=== PATIENT | male | born 1995 | race Caucasian/White ===

== ENCOUNTER 2019-02-16 16:15 | Inpatient (IN) | payer MEDICAID, OTHER ==
[~2019-02-16] VITALS: Ht 182 cm; Wt 120.7 kg
[~2019-02-16 16:15] MED LIST: AC500T PO; AMOX500C2 PO; ATOM100C PO; CETI10TA57 PO; DM/P1CAP51 PO; DM/P295L13 PO; LISD60CA PO; OMG1KC PO
[2019-02-16] MEDS ORDERED: LACTATED RINGERS 1,000 ML IV ONE ×2 (16:22)
[2019-02-16] MEDS ORDERED: ACETAMINOPHEN 500 MG TAB (TYLENOL) ONE (16:26)
[2019-02-16] MEDS ORDERED: NS IV 1000 ML 1,000 ML ONE (16:26)
[2019-02-16] MEDS ORDERED: ACETAMINOPHEN 500 MG TAB (TYLENOL) PO PRN (16:30)
[2019-02-16 16:35] LABS: BASOPHILS % (AUTO) 0 % (0-10); EOSINOPHILS % (AUTO) 0 % (0-10); HEMATOCRIT 41 % (40-54); HEMOGLOBIN 13.7 G/DL (13.3-17.7); LYMPHOCYTES # (AUTO) 0.8 X 10^3 (1.0-4.0); LYMPHOCYTES % (AUTO) 11 % (12-44); MEAN CORPUSCULAR HEMOGLOBIN 28 PG (25-34); MEAN CORPUSCULAR HGB CONC 34 G/DL (32-36); MEAN CORPUSCULAR VOLUME 83 FL (80-99); MONOCYTES # (AUTO) 0.8 X 10^3 (0.0-1.0); MONOCYTES % (AUTO) 11 % (0-12); NEUTROPHILS # (AUTO) 5.7 X 10^3 (1.8-7.8); NEUTROPHILS % (AUTO) 78 % (42-75); PLATELET COUNT 126 10^3/uL (130-400); RED CELL DISTRIBUTION WIDTH 12.3 % (10.0-14.5); WHITE BLOOD COUNT 7.3 10^3/uL (4.3-11.0)
--- NOTE | 2019-02-16 16:40 | ED General ---
General Chief Complaint: Fever-Adult/Adol Stated Complaint: FEVER/WEAKNESS Nursing Triage Note: ARRIVED VIA EMS FROM [facility]. PRESENTED THERE WITH FLU LIKE SX SINCE WEDNESDAY FEVER 105 THERE ET IBUPROFEN 600MG GIVEN. PT COMPLAINS OF HEADACHE, NECK PAIN, SORE THROAT. Nursing Sepsis Screen: Possible Severe Sepsis Risk Source of Information: Patient Exam Limitations: No Limitations History of Present Illness Date Seen by Provider: Feb 16, 2019 Time Seen by Provider: 16:20 Initial Comments Here with report of fever of 105 and flulike symptoms that have been going on for the last 4 days. Everything is worse today. Does complain of headache and some neck pain. Does complain of sore throat. Denies nausea, vomiting or diarrhea. Overall states that he feels terrible. Was seen at outside urgent care clinic and noted to be strep and flu negative. Otherwise no significant history. Has had some sick contacts but nobody had the illness as bad as he has it. Denies recent tick contacts but is unsure. Timing/Duration: 3-4 Days, Getting Worse Severity: Moderate, Severe Modifying Factors: improves with Rest Associated Systoms: No Chest Pain, No Cough; Fever/Chills, Headaches; No Nausea/Vomiting, No Shortness of Air; Weakness Allergies and Home Medications Allergies Coded Allergies: lentils (Verified Allergy, Unknown, 02/16/19) nut - unspecified (Verified Allergy, Unknown, 02/16/19) Home Medications Atomoxetine HCl 60 Mg Capsule, 60 MG PO DAILY, (Reported) Azithromycin 250 Mg Tablet, 250 MG PO DAILY Prescribed by: TROY BLAKE on 02/19/19 1242 Cephalexin 500 Mg Capsule, 500 MG PO BID Prescribed by: TROY BLAKE on 02/19/19 1242 Guaifenesin/Dextromethorphan 5 Ml Syrup, 10 ML PO TID PRN for COUGH Prescribed by: TROY BLAKE on 02/19/19 1242 Lisdexamfetamine Dimesylate 50 Mg Capsule, 50 MG PO DAILY, (Reported) Patient Home Medication List Home Medication List Reviewed: Yes Review of Systems Review of Systems Constitutional: see HPI, fever EENTM: nose congestion, throat pain; No nose pain, No throat swelling Respiratory: No cough, No short of breath Cardiovascular: No chest pain, No edema Gastrointestinal: No abdominal pain, No nausea, No vomiting Genitourinary: no symptoms reported Musculoskeletal: muscle pain, neck pain Skin: no symptoms reported Psychiatric/Neurological: No Symptoms Reported All Other Systems Reviewed Negative Unless Noted: Yes Past Pynyhbo-Lusuhi-Zadmfz Hx Past Med/Social Hx: Reviewed Nursing Past Med/Soc Hx Patient Social History Alcohol Use: Occasionally Uses Recreational Drug Use: No Smoking Status: Never a Smoker Recent Foreign Travel: No Contact w/Someone Who Travel: No Recent Infectious Disease Expo: No Recent Hopitalizations: No Past Medical History Surgeries: Yes Adenoidectomy Respiratory: No Cardiac: No Neurological: No Genitourinary: No Gastrointestinal: No Musculoskeletal: No Endocrine: No HEENT: No Cancer: No Psychosocial: Yes ADD/ADHD Integumentary: No Family Medical History Reviewed Nursing Family Hx No Pertinent Family Hx Physical Exam-Suspected Sepsis Physical Exam Vital Signs Vital Signs - First Documented 02/16/19 02/16/19 16:17 23:54 Temp 40.6 Pulse 110 Resp 18 B/P (MAP) 112/54 (73) Pulse Ox 96 O2 Delivery Room Air O2 Flow Rate 2.00 Capillary Refill : Less Than 3 Seconds Blood Pressure Mean: 73 Height, Weight, BMI Height: '" Weight: 192lbs. oz. 87.728879sq; 30.00 BMI Method:Stated General Appearance: No Apparent Distress, WD/WN HEENT: PERRL/EOMI, Pharynx Normal Neck: Full Range of Motion, Normal Inspection, Non Tender, Supple Respiratory: Lungs Clear, Normal Breath Sounds Cardiovascular: No Murmur, Tachycardia Gastrointestinal: Non Tender, Soft Back: Normal Inspection, No CVA Tenderness, No Vertebral Tenderness Extremity: Normal Range of Motion, Non Tender Neurologic/Psychiatric: Alert, Oriented x3 Skin: normal color, warm/dry Focused Exam Lactate Level Lactic Acid Level Procedures/Interventions Lumen: triple Central Line Procedure: betadine prep, sterile drapes applied, sterile dressing applied Position: internal jugular (R) Anesthesia: Lidocaine Volume Anesthetic (ccs): 4 Complications: none Post Position: sutured, good blood return, position confirmed w/ CXR Central line placed by Guido Saucedo MS4, via ultrasound guidance under my direct supervision. I was present for and assisted with the procedure for the entire procedure. 1 stick without complications. Sutured in place. Good blood return and flush. Covered with sterile dressing. Verified by chest x-ray. Discussed Risk,Benefits: Yes Patient Consents: Yes Position: Lying, L3-4, Right Sterile Technique: Yes Opening Pressure: 40 Fluid Color: clear Size of Disposal Tray Used: Adult anesthetized with 2% lidocaine with epinephrine. Tolerated procedure well Progress/Results/Core Measures Suspected Sepsis Recent Fever Within 48 Hours: Yes Infection Criteria Present: Suspected New Infection New/Unexplained Altered Menta: No Sepsis Screen: Possible Severe Sepsis Risk SIRS Temperature: Pulse: 110 Respiratory Rate: 18 Laboratory Tests 02/19/19 05:02: White Blood Count 4.1L Blood Pressure 112 /54 Mean: 73 Laboratory Tests 02/19/19 05:02: Creatinine 0.71, Platelet Count 132 Results/Orders Lab Results Micro Results My Orders Medications Given in ED Vital Signs/I&O Capillary Refill : Less Than 3 Seconds Blood Pressure Mean: 73 Progress Note : Progress Note Seen and evaluated on arrival by EMS. IV, labs, UA, blood cultures, lactic acid and tick panel ordered. Chest x-ray ordered. We will repeat influenza screen. NS1 liter bolus followed by LR [address] head ordered in anticipation of possible lumbar puncture. Monitor patient. 1723: CT negative. We will proceed with lumbar puncture due to persistent pain and hypotension. Consent signed for lumbar puncture and central line. Mother signed. I did update parents on concerns. Due to progression of symptoms, we will go ahead and initiate Decadron 10 mg IV and Rocephin 2 g IV. Fentanyl IV for pain ordered. 1730: Fentanyl greatly reduced pain and he is much more comfortable. Still concerns for meningitis. Patient prepared for lumbar puncture. 1800: Lumbar puncture complete. We will move to Central line placement as patient has been hypotensive despite high volume fluid resuscitation with blood pressures in the 80s. 1845: Central line placement complete. Tolerated well. We will move towards admission to the ICU. I are discussed the case with Dr. To and he agreed with the initiation of antibiotics and Decadron as done earlier. 0: I discussed the case with Dr. Lynch, on-call for [facility] and she accepts patient for admission, inpatient status to the ICU. We did discuss cell count findings. Patient did have high opening pressure. There is concern for viral meningitis and for HSV encephalitis. We will initiate acyclovir weight-based dosing. Acyclovir 800 mg IV ordered. 1904: I have updated Dr. To on current findings. He agrees with acyclovir. We will move towards admission. 1932: Patient has findings of septic shock. High-volume fluid resuscitation complete and is improved with respect to hypotension. No need for pressors at this point. I attest a focused exam at this time. Patient is maintaining blood pressure with greater than 100 systolic. He is currently on the 250 mL an hour LR fluid dosing. We will consider vasopressors if needed. All findings and concerns were discussed with the patient and family and he was updated on the current plan and agrees. UA obtained via Fung catheter. Patient did have 600 mL out but could not tolerate the catheter so this was removed. Admit to the ICU, inpatient status. Diagnostic Imaging Diagonstic Imaging: CT Plain Films/CT/US/NM/MRI: head Comments [facility] [place] NAME: JEFFRY FREED MED REC#: [id number] PT STATUS: REG ER : 1995 PHYSICIAN: DAVID MATA MD ADMIT DATE: 02/16/19/ER Draft Date of Exam:02/16/19 CT HEAD WO PROCEDURE: CT head without contrast. TECHNIQUE: Multiple contiguous axial images were obtained through the brain without the use of intravenous contrast. Auto Exposure Controls were utilized during the CT exam to meet ALARA standards for radiation dose reduction. INDICATION: Febrile. Headache. Neck pain. FINDINGS: The ventricles and cortical gyral pattern are normal. There is no intracranial hemorrhage. No mass effect. No extra-axial fluid collection. Basal cisterns are clear. CP angles are normal. Pituitary is not enlarged. Mastoid air cells are well aerated and clear. Paranasal sinuses are clear where visualized. There are no calvarial lesions. IMPRESSION: Negative CT head without contrast. Dictated on workstation # [id number] Dict: 02/16/19 1710 Trans: 02/16/19 1714 [id number] Interpreted by: ROSEMARIE AMAYA MD Electronically signed by: Diagonstic Imaging: Xray Plain Films/CT/US/NM/MRI: chest Comments NAME: JEFFRY FREED MED REC#: [id number] PT STATUS: REG ER : 1995 PHYSICIAN: DAVID MATA MD ADMIT DATE: 02/16/19/ER Signed Date of Exam: 02/16/19 CHEST 1 VIEW, AP/PA ONLY INDICATION: Headache and fever. COMPARISON: None. EXAMINATION: Single view of the chest was obtained. FINDINGS: Opacity in the left base. The right lung is clear. The heart is slightly prominent but likely due to technique. There is no pneumothorax. No pulmonary edema. There is no obvious effusion. Osseous structures are normal. IMPRESSION: Atelectasis and/or infiltrate in the left lung base. Followup recommended. Dictated by: Dictated on workstation # [id number] Dict: 02/16/191726 Trans: 02/16/191820 Interpreted by: JUNG HAYES Electronically signed by: JUNG HAYES 02/16/191820 Diagonstic Imaging: Xray Plain Films/CT/US/NM/MRI: chest Comments NAME: JEFFRY FREED [facility] REC#: [id number] PT STATUS: REG ER : 1995 PHYSICIAN: DONNIE PARKER APRN ADMIT DATE: 02/16/19/ER Signed Date of Exam: 02/16/19 CHEST 1 VIEW, AP/PA ONLY INDICATION: Central line placement COMPARISON: 02/16/19 at 5:19 PM FINDINGS: Single view of the chest demonstrates right IJ catheter with the tip in the SVC. There is no pneumothorax. IMPRESSION: Well-positioned right central venous catheter Dictated by: Dictated on workstation # [id number] Dict: 02/16/19 190 Trans: 02/16/191919 Interpreted by: JUNG HAYES Electronically signed by: JUNG HAYES 02/16/191919 Departure Communication (Admissions) Time/Spoke to Admitting Phy: 19:00 Time/Spoke to Consulting Phy: 17:35 Impression Primary Impression: Meningitis Additional Impression: Left lower lobe pneumonia Qualified Codes: J18.1 - Lobar pneumonia, unspecified organism Disposition: ADMITTED INPATIENT Condition: Stable Admissions Decision to Admit Reason: Admit from ER (General) Decision to Admit/Date: Feb 16, 2019 Time/Decision to Admit Time: 17:35 Departure-Patient Inst. Referrals: [facility] (PCP/Family) Primary Care Physician Scripts Guaifenesin/Dextromethorphan (Guaifenesin Dm Syrup) 5 Ml Syrup 10 ML PO TID PRN for COUGH, #60 ML Prov: TROY BLAKE MD 02/19/19 Azithromycin (Azithromycin) 250 Mg Tablet 250 MG PO DAILY, #1 TAB Prov: TROY BLAKE MD 02/19/19 Cephalexin (Keflex) 500 Mg Capsule 500 MG PO BID, #6 CAP Prov: TROY BLAKE MD 02/19/19 DAVID MATA MD Feb 16, 2019 16:40
[2019-02-16] MEDS ORDERED: NS IV 1000 ML 1,000 ML IV SCH (16:45)
[2019-02-16 16:53] LABS: ALANINE AMINOTRANSFERASE 34 U/L (0-55); ALBUMIN 4.4 GM/DL (3.2-4.5); ALKALINE PHOSPHATASE 54 U/L (40-136); BILIRUBIN,TOTAL 0.6 MG/DL (0.1-1.0); BUN/CREATININE RATIO 7; CALCIUM 9.3 MG/DL (8.5-10.1); CARBON DIOXIDE 27 MMOL/L (21-32); CHLORIDE 99 MMOL/L (98-107); CREATININE SERUM 1.13 MG/DL (0.60-1.30); GFR ESTIMATED > 60; GLUCOSE 98 MG/DL (70-105); POTASSIUM 3.4 MMOL/L (3.6-5.0); SODIUM 134 MMOL/L (135-145); TOTAL PROTEIN 7.4 GM/DL (6.4-8.2)
[2019-02-16 16:58] LABS: INR 1.2 (0.8-1.4); PROTHROMBIN TIME PATIENT 15.5 SEC (12.2-14.7)
--- NOTE | 2019-02-16 17:15 | Diagnostic Imaging Report ---
PROCEDURE: CT head without contrast. TECHNIQUE: Multiple contiguous axial images were obtained through the brain without the use of intravenous contrast. Auto Exposure Controls were utilized during the CT exam to meet ALARA standards for radiation dose reduction. INDICATION: Febrile. Headache. Neck pain. FINDINGS: The ventricles and cortical gyral pattern are normal. There is no intracranial hemorrhage. No mass effect. No extra-axial fluid collection. Basal cisterns are clear. CP angles are normal. Pituitary is not enlarged. Mastoid air cells are well aerated and clear. Paranasal sinuses are clear where visualized. There are no calvarial lesions. IMPRESSION: Negative CT head without contrast. Dictated by: Dictated on workstation # [id number]
[2019-02-16] MEDS ORDERED: fentaNYL INJECTION 100 MCG/2 ML AMP IVP STA (17:17)
[2019-02-16] MEDS ORDERED: cefTRIAXone FOR IV USE 2,000 MG in WATER (STERILE) FOR INJECTION 20 ML IV ONE (17:30)
[2019-02-16] MEDS ORDERED: DEXAMETHASONE 10 MG/ML (DECADRON) 1 ML VIAL IV ONE (17:30)
--- NOTE | 2019-02-16 17:34 | Diagnostic Imaging Report ---
INDICATION: Headache and fever. COMPARISON: None. EXAMINATION: Single view of the chest was obtained. FINDINGS: Opacity in the left base. The right lung is clear. The heart is slightly prominent but likely due to technique. There is no pneumothorax. No pulmonary edema. There is no obvious effusion. Osseous structures are normal. IMPRESSION: Atelectasis and/or infiltrate in the left lung base. Followup recommended. Dictated by: Dictated on workstation # [id number]
[2019-02-16] MEDS ORDERED: LIDOCAINE/EPI 2% 1:100,00 (XYLOCAINE) 20 ML VIAL ONE (17:38)
[2019-02-16] MEDS ORDERED: LIDOCAINE/EPI 2% 1:100,00 (XYLOCAINE) 20 ML VIAL INJ ONE (17:45)
[2019-02-16] MEDS ORDERED: LACTATED RINGERS 1,000 ML IV SCH (18:30)
[2019-02-16 18:42] LABS: CSF GLUCOSE 61 MG/DL (50-80); CSF TOTAL PROTEIN 27 MG/DL (15-40)
[2019-02-16 18:52] LABS: APPEARANCE,CSF CLEAR; COLOR,CSF COLORLESS; RED BLOOD CELL,CSF 3 CELLS (0-0); WHITE BLOOD CELL,CSF 2 CELLS (0-5)
--- NOTE | 2019-02-16 19:07 | Diagnostic Imaging Report ---
INDICATION: Central line placement COMPARISON: 02/16/19 at 5:19 PM FINDINGS: Single view of the chest demonstrates right IJ catheter with the tip in the SVC. There is no pneumothorax. IMPRESSION: Well-positioned right central venous catheter Dictated by: Dictated on workstation # [id number]
[2019-02-16] MEDS ORDERED: ACYCLOVIR 800 MG/NS 250 ML IVPB IV NR ×2 (19:15)
[2019-02-16] MEDS ORDERED: ACYCLOVIR 500 MG/10 ML INJ (ZOVIRAX) VIAL IV SCH (19:15)
[2019-02-16 19:25] LABS: BILIRUBIN,URINE NEGATIVE (NEGATIVE); CLARITY,URINE CLEAR; COLOR,URINE YELLOW; GLUCOSE, URINE (UA) NEGATIVE (NEGATIVE); KETONES,URINE 2+ (NEGATIVE); LEUKOCYTE ESTERASE ,URINE NEGATIVE (NEGATIVE); NITRITE,URINE NEGATIVE (NEGATIVE); PH,URINE 6 (5-9); PROTEIN,URINE 1+ (NEGATIVE); UROBILINOGEN,URINE NORMAL (NORMAL)
[2019-02-16 19:33] LABS: CSF TUBE NUMBER 4
[2019-02-16 19:39] LABS: AMORPHOUS SEDIMENT,UR RARE AMOR URATES /LPF; BACTERIA,URINE TRACE /HPF; RBC,URINE RARE /HPF; SQUAMOUS EPITHELIAL CELL,UR RARE /HPF
--- NOTE | 2019-02-16 19:45 | NUR ---
Patient did not tolerate liz catheter and requested to have it removed. Per Dr. Cooper Catheter can be removed. Liz catheter removed without difficulty. Patient tolerates procedure well.
--- NOTE | 2019-02-16 19:48 | NUR ---
Report called to Kaela in ICU.
[2019-02-16 20:09] VITALS: BP 110/49
[2019-02-16] MEDS ORDERED: fentaNYL INJECTION 100 MCG/2 ML AMP IV PRN (20:30)
[2019-02-16] MEDS ORDERED: EPINEPHrine 1 MG INJECTION 2 MG in NS (IVPB) 250 ML IV SCH (20:30)
[2019-02-16] MEDS: VASOPRESSIN INJECTION 20 UNIT in NORMAL SALINE 100 ML IV SCH (20:39)
[2019-02-16] MEDS: NOREPINEPHRINE 4 MG in NS (IVPB) 250 ML IV SCH (20:39)
[2019-02-16] MEDS: AZITHROMYCIN 500 MG/NS 250 ML IVPB IV SCH ×2 (20:54)
[2019-02-16] MEDS: LACTATED RINGERS 1,000 ML IV SCH (20:54)
[2019-02-16 21:00] VITALS: BP 104/52
[2019-02-16 22:00] VITALS: BP 105/50
[2019-02-16 23:00] VITALS: BP 106/68
[2019-02-17] VITALS (24 sets, daily range): BP systolic 97–178; BP diastolic 49–122
[2019-02-17] MEDS: LACTATED RINGERS 1,000 ML IV SCH ×5 (02:10→22:23)
[2019-02-17] MEDS: ACYCLOVIR 800 MG/NS 250 ML IVPB IV SCH ×6 (03:08→20:13)
[2019-02-17 03:16] LABS: BASOPHILS % (AUTO) 0 % (0-10); EOSINOPHILS % (AUTO) 0 % (0-10); HEMATOCRIT 36 % (40-54); HEMOGLOBIN 12.2 G/DL (13.3-17.7); LYMPHOCYTES # (AUTO) 0.5 X 10^3 (1.0-4.0); LYMPHOCYTES % (AUTO) 9 % (12-44); MEAN CORPUSCULAR HEMOGLOBIN 28 PG (25-34); MEAN CORPUSCULAR HGB CONC 34 G/DL (32-36); MEAN CORPUSCULAR VOLUME 83 FL (80-99); MEAN PLATELET VOLUME 11.4 FL (7.4-10.4); MONOCYTES # (AUTO) 0.3 X 10^3 (0.0-1.0); MONOCYTES % (AUTO) 5 % (0-12); NEUTROPHILS # (AUTO) 5.5 X 10^3 (1.8-7.8); NEUTROPHILS % (AUTO) 87 % (42-75); PLATELET COUNT 113 10^3/uL (130-400); RED CELL DISTRIBUTION WIDTH 12.1 % (10.0-14.5); WHITE BLOOD COUNT 6.3 10^3/uL (4.3-11.0)
[2019-02-17 03:33] LABS: BUN/CREATININE RATIO 12; CALCIUM 8.3 MG/DL (8.5-10.1); CARBON DIOXIDE 22 MMOL/L (21-32); CHLORIDE 108 MMOL/L (98-107); CREATININE SERUM 0.77 MG/DL (0.60-1.30); GFR ESTIMATED > 60; GLUCOSE 133 MG/DL (70-105); MAGNESIUM 1.8 MG/DL (1.6-2.4); PHOSPHORUS 2.9 MG/DL (2.3-4.7); SODIUM 140 MMOL/L (135-145)
--- NOTE | 2019-02-17 03:35 | NUR ---
TURNED ROOM TEMP UP AND APPLIED WARM BLANKET. WILL REASSESS
[2019-02-17] MEDS: POTASSIUM CL 10MEQ/50ML IVPB 50 ML IV SCH (04:04)
[2019-02-17] MEDS: NOREPINEPHRINE 4 MG in NS (IVPB) 250 ML IV SCH ×3 (04:04→20:00)
[2019-02-17] MEDS: MAGNESIUM 1 GM/100 ML IVPB 100 ML IV SCH (04:04)
[2019-02-17] MEDS: KCL 20 MEQ TAB (K-DUR) PO SCH (04:04)
--- NOTE | 2019-02-17 04:27 | Pulmonary Consultation ---
RUSTY CARLOS,MED STUDENT 02/17/19 0427: History of Present Illness History of Present Illness Date of Consultation 02/17/19 04:12 Time Seen by Provider: 04:12 Date of Admission Reason for Visit: high fever and headache History of Present Illness Patient is a 23y/o male that present to the ER last night upon referral by urgent care for a high fever (40.6C) and headache. Patient states that he has been fluctuating between hot and cold, having headaches t that are constant but wax and wane in intensity, a sore throat with non-productive cough and myalgias. He as stated that he had generalized weakness and myalgias that made it hard to move. 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 He denies any contact with sick individuals, tick bites, exposure to farm animals, he does own a rat terrier. The headache is currently describes as dull and "It is just there but not bad." Patient mention that he as severe allergies to nuts, legumes, and lentils that cause anaphylaxis. His mother recently tested positive for homocysteine (MTHFR gene mutation) ROS admits fever, chills, sore throat, cough, headache, diaphoresis, myalgia denies chest pain, SOB, changes in vision, changes in hearing, changes in MS, stomach pain, nausea, vomiting, photophobia, phonophobia Allergies and Home Medications Allergies Coded Allergies: lentils (Verified Allergy, Unknown, 02/16/19) nut - unspecified (Verified Allergy, Unknown, 02/16/19) Home Medications Atomoxetine Hcl 100 Mg Capsule, 100 MG PO DAILY, (Reported) Lisdexamfetamine Dimesylate 60 Mg Capsule, 60 MG PO DAILY, (Reported) Past Soihbtq-Qsclmv-Fizlhr Hx Past Med/Social Hx: Reviewed Nursing Past Med/Soc Hx Patient Social History Alcohol Use: Occasionally Uses Recreational Drug Use: No Smoking Status: Never a Smoker Recent Foreign Travel: No Contact w/Someone Who Travel: No Recent Infectious Disease Expo: No Recent Hopitalizations: No Physical Abuse: No Sexual Abuse: No Mistreated: No Fear: No Past Medical History Surgeries: Yes Adenoidectomy Respiratory: No Cardiac: No Neurological: No Genitourinary: No Gastrointestinal: No Musculoskeletal: No Endocrine: No HEENT: No Cancer: No Psychosocial: Yes ADD/ADHD Integumentary: No Family Medical History Reviewed Nursing Family Hx No Pertinent Family Hx Sepsis Event Evaluation Height, Weight, BMI Height: '" Weight: 192lbs. oz. 87.387568ha; 36.22 BMI Method:Stated Exam Exam Vital Signs Date Time Temp Pulse Resp B/P (MAP) Pulse Ox O2 Delivery O2 Flow Rate FiO2 02/17/19 04:00 80 18 102/71 (81) 94 Nasal Cannula 2.00 02/17/19 03:30 35.7 02/17/19 03:00 75 17 119/64 (82) 96 Nasal Cannula 2.00 02/17/19 02:00 69 15 112/66 (81) 96 Nasal Cannula 2.00 02/17/19 01:02 75 02/17/19 01:00 72 14 97/62 (74) 95 Nasal Cannula 2.00 02/17/19 00:00 78 15 114/63 (80) 96 Room Air 02/16/19 23:54 Nasal Cannula 2.00 02/16/19 23:51 35.9 Nasal Cannula 02/16/19 23:00 83 16 106/68 (81) 91 Room Air 02/16/19 22:00 92 22 105/50 (68) 91 Room Air 02/16/19 21:00 93 17 104/52 (69) 94 Room Air 02/16/19 20:27 94 Room Air 02/16/19 20:09 36.6 96 18 110/49 (69) Room Air 02/16/19 20:08 97 02/16/19 19:49 37.9 90 19 103/49 93 Room Air 02/16/19 16:17 40.6 110 18 112/54 (73) 96 Room Air I & O 02/17/19 07:00 Intake Total 5636 ml Output Total 1000 ml Balance 4636 ml Height & Weight Height: '" Weight: 192lbs. oz. 87.799453kd; 36.22 BMI Method:Stated General Appearance: No Apparent Distress, Mild Distress, Obese HEENT: PERRL/EOMI Neck: Full Range of Motion, Normal Inspection, Non Tender, Supple Respiratory: Chest Non Tender, Lungs Clear, Normal Breath Sounds, No Accessory Muscle Use, No Respiratory Distress Cardiovascular: Regular Rate, Rhythm, No Edema, No Gallop, No JVD, No Murmur, Normal Peripheral Pulses, Tachycardia Capillary Refill: Less Than 3 Seconds Peripheral Pulses: 2+ Dorsalis Pedis (R), 2+ Left Dors-Pedis (L), 2+ Radial Pulses (R), 2+ Radial Pulses (L) Gastrointestinal: non tender, soft, no organomegaly, no pulsatile mass Extremity: Normal Range of Motion, Non Tender, No Pedal Edema Neurologic/Psychiatric: Alert, Oriented x3, Normal Mood/Affect Skin: Cool, Diaphoresis, Pallor Results Lab Laboratory Tests 02/16/19 16:22 02/17/19 03:06 Assessment/Plan Assessment/Plan Meningitis r/o bacterial, viral, TB head/neck/chest CT Lumbar puncture - suggestive of viral meningitis - cultures pending Started on Acyclovir 800mg IV Q8h LLL PNA - sputum culture ordered - blood urine cultures pending - Rocephain 1g IV QD started 02/17 @ 1700 - Azithromycin 500mg IV QD started 02/16 2054 atelectasis IS Thrombocytopenia increased PT - suggests clotting issue - recheck ADHD - restart home meds if they don't interact with medications we are giving JUDITH workup as outpatient TK TO DO 02/17/19 0453: History of Present Illness History of Present Illness Time Seen by Provider: 04:47 History of Present Illness 23yo presented to ED secondary to high fever, sore throat, nonproductive cough and SCHROEDER. He had lumbar puncture in ED. Denies any contact with sick individuals, tick bites, exposure to farm animals. No visual changes. No prior episodes. 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 Allergies and Home Medications Allergies Coded Allergies: lentils (Verified Allergy, Unknown, 02/16/19) nut - unspecified (Verified Allergy, Unknown, 02/16/19) Home Medications Atomoxetine Hcl 100 Mg Capsule, 100 MG PO DAILY, (Reported) Lisdexamfetamine Dimesylate 60 Mg Capsule, 60 MG PO DAILY, (Reported) Review of Systems Time Seen by Provider: 04:50 Constitutional: Fever, Chills, Sweats, Weakness, Malaise, Other Eyes: No: Pain, Vision change, Conjunctivae inflammation, Eyelid inflammation, Other, Redness ENT: No: Ear pain, Ear discharge, Nose pain, Nose discharge, Nose congestion, Mouth pain, Mouth swelling, Throat pain, Throat swelling, Other Respiratory: Cough, Dry; No: Shortness of breath, SOB with excertion, Wheezing, Hemoptysis, Pleuritic Pain, Sputum, Wheezing, Other Cardiovascular: No: Chest Pain, Palpitations, Orthopnea, Paroxysmal Noc. Dyspnea, Edema, Lt Headedness, Other Gastrointestinal: No: Nausea, Vomiting, Abdominal Pain, Diarrhea, Constipation, Melena, Hematochezia, Other Genitourinary: No Dysuria, No Frequency, No Incontinence, No Hematuria, No Retention, No Other Exam Exam General Appearance: No Apparent Distress, Obese HEENT: PERRL/EOMI Neck: Full Range of Motion, Normal Inspection, Non Tender, Supple Respiratory: Chest Non Tender, Lungs Clear, Normal Breath Sounds, No Accessory Muscle Use, No Respiratory Distress Cardiovascular: Regular Rate, Rhythm, No Edema, No Gallop, No JVD, No Murmur, Normal Peripheral Pulses, Tachycardia Gastrointestinal: non tender, soft, no organomegaly, no pulsatile mass Extremity: Normal Range of Motion, Non Tender, No Pedal Edema Neurologic/Psychiatric: Alert, Oriented x3, Normal Mood/Affect Skin: Cool, Diaphoresis Assessment/Plan Assessment/Plan Meningitis - probably viral head/neck/chest CT Lumbar puncture - cultures pending Started on Acyclovir 800mg IV Q8h LLL PNA -Check CT of chest r/o empyema - sputum culture ordered - blood urine cultures pending - Rocephain 1g IV QD started 02/17 @ 1700 - Azithromycin 500mg IV QD started 02/16 2054 atelectasis IS Thrombocytopenia increased PT - suggests clotting issue - recheck ADHD JUDITH workup as outpatient Nonsmoker, no illicits Supervisory-Addendum Brief Verification & Attestation Participated in pt care: history Personally performed: exam, history Care discussed with: Medical Student Procedures: n/a Verification and Attestation of Medical Student E/M Service A medical student performed and documented this service in my presence. I reviewed and verified all information documented by the medical student and made modifications to such information, when appropriate. I personally performed the physical exam and medical decision making. Tk To, Feb 17, 2019,06:51 RUSTY CARLOS,MED STUDENT Feb 17, 2019 04:27 TK TO DO Feb 17, 2019 04:53
[2019-02-17] MEDS ORDERED: LACTATED RINGERS 1,000 ML IV SCH (05:15)
[2019-02-17] MEDS ORDERED: NS 100 ML (IVPB) BAG IV ONE (06:00)
[2019-02-17] MEDS ORDERED: HOLD METFORMIN - RECEIVED CONTRAST 20 ML VIAL IV SCH (06:00)
[2019-02-17] MEDS ORDERED: IOHEXOL 350 MG/ML 100 ML (OMNIPAQUE 350) VIAL IV ONE (06:00)
[2019-02-17] MEDS: VASOPRESSIN INJECTION 20 UNIT in NORMAL SALINE 100 ML IV SCH ×3 (06:19→21:34)
[2019-02-17] MEDS: ENOXAPARIN 40 MG/0.4 ML (LOVENOX) SYR SC SCH (06:37)
[2019-02-17 06:59] LABS: AMPHETAMINE SCREEN, URINE POSITIVE (NEGATIVE); BARBITURATE SCREEN URINE NEGATIVE (NEGATIVE); BENZODIAZEPINES SCREEN URINE NEGATIVE (NEGATIVE); CANNABINOID SCREEN, URINE NEGATIVE (NEGATIVE); COCAINE SCREEN URINE NEGATIVE (NEGATIVE); METHADONE STAT NEGATIVE (NEGATIVE); METHAMPHETAMINE SCREEN URINE S NEGATIVE (NEGATIVE); OPIATE SCREEN URINE NEGATIVE (NEGATIVE); OXYCODONE STAT NEGATIVE (NEGATIVE); PROPOXYPHENE STAT NEGATIVE (NEGATIVE); TRICYCLIC ANTIDEPRESSANTS SCRE NEGATIVE (NEGATIVE)
--- NOTE | 2019-02-17 07:00 | Diagnostic Imaging Report ---
PROCEDURE: CT chest with contrast only. TECHNIQUE: Multiple contiguous axial images were obtained through the chest after administration of intravenous contrast. Auto Exposure Controls were utilized during the CT exam to meet ALARA standards for radiation dose reduction. INDICATION: Pneumonia and possible meningitis. There is volume loss and consolidation in the anterior and lateral basilar aspect of the left lower lobe with air bronchograms. In addition, there are patchy peripheral areas of airspace disease in both lungs with air bronchograms also present in the lingula. No significant pleural or pericardial fluid is identified. There is moderate hiatal hernia. There is no evidence of pathologic adenopathy. IMPRESSION: Patchy bilateral pneumonia with most involvement in the left lower lobe and lingula. Clinical correlation would be useful. Possibility of pulmonary infarct from emboli is considered less likely but not excluded. Dictated by: Dictated on workstation # [id number]
--- NOTE | 2019-02-17 07:54 | Diagnostic Imaging Report ---
INDICATION: Pneumonia and meningitis Upright portable AP view of the chest is obtained. Comparison is made to the study of 02/16/2019. Overall heart size and pulmonary vascularity are within normal limits. There is consolidation within the lingula and left lower lobe with blunting of left costophrenic sulcus. There is mild patchy density also seen in the right parahilar region. No pneumothorax is identified. Right jugular central venous catheter reaches the mid superior vena cava. IMPRESSION: Bilateral airspace disease involving lower half of left lung to greatest extent compatible with pneumonia. Progress films would be useful. Dictated by: Dictated on workstation # [id number]
[2019-02-17] MEDS ORDERED: LISD50CA PO (09:18)
[2019-02-17] MEDS ORDERED: ATOM60CA4 PO (09:18)
--- NOTE | 2019-02-17 10:46 | History & Physical-Hospitalist ---
History of Present Illness HPI/Chief Complaint Pt is a 23yoCM with a PMH of ADHD who presented to the ER due to fever and flu like symptoms. He states his symptoms started on 02/13 in the evening with a headache and progressed through the week. He would get intermittent fevers and chills and had generlized weakness. He also had severe headache. He decided to seek evaluation yesterday at an urgent care and was referred to the ER for evaluation. He states he was so weak he was hardly able to lift his arms to even text and could not walk. He reports today that he is feeling much better today. He has a minor headache but otherwise no complaints. His weakness has s ignificantly improved. He was found to have a LLL pneumonia and a LP was done that was not suggestive of bacterial meningitis. Source: patient Date Seen 02/17/19 Time Seen by a Provider: 10:41 Attending Physician Tamiko Lynch DO [facility] Center/[facility] [place] Referring Physician Date of Admission Feb 16, 2019 at 19:21 Home Medications & Allergies Home Medications Reviewed patient Home Medication Reconciliation performed by pharmacy medication reconciliations critical power install technician and/or nursing. Patients Allergies have been reviewed. Allergies Allergies Coded Allergies lentils (Verified Allergy, Unknown, 02/16/19) nut - unspecified (Verified Allergy, Unknown, 02/16/19) Past Bdcfygx-Unwens-Cumzlu Hx Past Med/Social Hx: Reviewed Nursing Past Med/Soc Hx Patient Social History Employed/Student: student, full-time Alcohol Use: Occasionally Uses Recreational Drug Use: No Smoking Status: Never a Smoker Recent Foreign Travel: No Contact w/other who traveled: No Recent Hopitalizations: No Recent Infectious Disease Expo: No Past Medical History Surgeries: Adenoidectomy Psychosocial: ADD/ADHD Family History Reviewed Nursing Family Hx No Pertinent Family Hx Review of Systems Constitutional: chills, diaphoresis, fever, weakness EENTM: throat pain Respiratory: cough; No phlegm Cardiovascular: No chest pain, No palpitations Gastrointestinal: no symptoms reported Genitourinary: no symptoms reported Musculoskeletal: no symptoms reported Skin: no symptoms reported Psychiatric/Neurological: No Symptoms Reported Physical Exam Physical Exam Vital Signs Vital Signs - First Documented 02/16/19 02/16/19 16:17 23:54 Temp 40.6 Pulse 110 Resp 18 B/P (MAP) 112/54 (73) Pulse Ox 96 O2 Delivery Room Air O2 Flow Rate 2.00 Capillary Refill : Less Than 3 Seconds Height, Weight, BMI Height: '" Weight: 192lbs. oz. 87.057669pr; 36.22 BMI Method:Stated General Appearance: No Apparent Distress, WD/WN, Obese HEENT: Moist Mucous Membranes; No Scleral Icterus (L), No Scleral Icterus (R) Neck: Full Range of Motion, Supple; No Thyromegaly Respiratory: No Accessory Muscle Use, No Respiratory Distress, Decreased Breath Sounds Cardiovascular: Regular Rate, Rhythm, No JVD, No Murmur Gastrointestinal: Normal Bowel Sounds, Non Tender, Soft Extremity: No Calf Tenderness, No Pedal Edema Neurologic/Psychiatric: Alert, Oriented x3, Normal Mood/Affect; No Aphasia, No Facial Droop Skin: Normal Color, Warm/Dry Results Results/Procedures Labs Laboratory Tests 02/16/19 16:22 02/17/19 03:06 Patient resulted labs reviewed. Imaging: Reviewed Imaging Report Assessment/Plan Admission Diagnosis severe sepsis Admission Status: Inpatient Order (span 2 midnights) Reason for Inpatient Admission: IV abx, await cultures Assessment and Plan Severe Sepsis CAP ?Viral meningitis Present on arrival (tachycardia, febrile with hypotension) PNA noted on CXR Continue Rocephin and Azithromycin Concern for possible viral meningitis- acyclovir Await cultures, flu negative Hypotension improved with high volume fluid resuscitation Clinical Quality Measures DVT/VTE Risk/Contraindication: Risk Factor Score Per Nursin RFS Level Per Nursing on Admit: 2=Moderate TROY BLAKE MD Feb 17, 2019 10:46
[2019-02-17] MEDS: ACETAMINOPHEN 500 MG TAB (TYLENOL) PO PRN ×2 (11:41→16:01)
[2019-02-17] MEDS: IBUPROFEN 600 MG (MOTRIN) TAB PO PRN (12:44)
[2019-02-17] MEDS: cefTRIAXone 1,000 MG/SWFI 10 ML IV PUSH IV SCH ×2 (17:33)
[2019-02-17] MEDS: AZITHROMYCIN 500 MG/NS 250 ML IVPB IV SCH ×2 (20:13)
[2019-02-18] VITALS (12 sets, daily range): BP systolic 104–161; BP diastolic 66–99
[2019-02-18 03:09] LABS: BASOPHILS % (AUTO) 0 % (0-10); EOSINOPHILS % (AUTO) 0 % (0-10); HEMATOCRIT 35 % (40-54); HEMOGLOBIN 11.7 G/DL (13.3-17.7); LYMPHOCYTES # (AUTO) 1.4 X 10^3 (1.0-4.0); LYMPHOCYTES % (AUTO) 24 % (12-44); MEAN CORPUSCULAR HEMOGLOBIN 28 PG (25-34); MEAN CORPUSCULAR HGB CONC 33 G/DL (32-36); MEAN CORPUSCULAR VOLUME 84 FL (80-99); MEAN PLATELET VOLUME 11.9 FL (7.4-10.4); MONOCYTES # (AUTO) 0.6 X 10^3 (0.0-1.0); MONOCYTES % (AUTO) 10 % (0-12); NEUTROPHILS # (AUTO) 3.8 X 10^3 (1.8-7.8); NEUTROPHILS % (AUTO) 65 % (42-75); PLATELET COUNT 122 10^3/uL (130-400); RED CELL DISTRIBUTION WIDTH 12.7 % (10.0-14.5); WHITE BLOOD COUNT 5.8 10^3/uL (4.3-11.0)
[2019-02-18] MEDS: NOREPINEPHRINE 4 MG in NS (IVPB) 250 ML IV SCH (03:13)
[2019-02-18] MEDS: ACETAMINOPHEN 500 MG TAB (TYLENOL) PO PRN ×2 (03:20→21:28)
[2019-02-18 03:26] LABS: BUN/CREATININE RATIO 13; CALCIUM 8.6 MG/DL (8.5-10.1); CARBON DIOXIDE 24 MMOL/L (21-32); CHLORIDE 108 MMOL/L (98-107); CREATININE SERUM 0.78 MG/DL (0.60-1.30); GFR ESTIMATED > 60; GLUCOSE 91 MG/DL (70-105); MAGNESIUM 1.8 MG/DL (1.6-2.4); PHOSPHORUS 2.3 MG/DL (2.3-4.7); POTASSIUM 3.6 MMOL/L (3.6-5.0); SODIUM 140 MMOL/L (135-145)
[2019-02-18] MEDS: ACYCLOVIR 800 MG/NS 250 ML IVPB IV SCH ×6 (04:14→20:17)
[2019-02-18] MEDS: ENOXAPARIN 40 MG/0.4 ML (LOVENOX) SYR SC SCH (04:14)
[2019-02-18] MEDS: POTASSIUM CL 10MEQ/50ML IVPB 50 ML IV SCH ×2 (04:14→04:26)
[2019-02-18] MEDS ORDERED: guaiFENesin/DM (ROBITUSSIN DM) 10 ML UDC PO PRN (04:15)
[2019-02-18] MEDS: MAGNESIUM 1 GM/100 ML IVPB 100 ML IV SCH (04:26)
[2019-02-18] MEDS: VASOPRESSIN INJECTION 20 UNIT in NORMAL SALINE 100 ML IV SCH (04:26)
[2019-02-18] MEDS: KCL 20 MEQ TAB (K-DUR) PO SCH (04:27)
--- NOTE | 2019-02-18 04:43 | Pulmonary Progress Note ---
Subjective Time Seen by a Provider: 04:40 Subjective/Events-last exam SCHROEDER improved. Pt feels better. Sepsis Event Evaluation Height, Weight, BMI Height: '" Weight: 192lbs. oz. 87.842020ko; 36.22 BMI Method:Stated Focused Exam Lactate Level 02/16/19 16:22: Lactic Acid Level 1.44 02/16/19 21:48: Lactic Acid Level 0.91 Exam Exam Vital Signs Date Time Temp Pulse Resp B/P (MAP) Pulse Ox O2 Delivery O2 Flow Rate FiO2 02/18/19 04:00 92 19 161/99 (119) 92 Nasal Cannula 2.00 02/18/19 04:00 37.8 02/18/19 04:00 97 Nasal Cannula 2.00 02/18/19 03:00 91 23 134/86 (102) 95 Nasal Cannula 2.00 02/18/19 02:00 77 19 161/88 (112) 95 Nasal Cannula 2.00 02/18/19 01:00 79 02/18/19 01:00 73 16 139/93 (108) 95 Nasal Cannula 2.00 02/18/19 00:00 97 Nasal Cannula 2.00 02/18/19 00:00 81 15 147/91 (109) 95 Nasal Cannula 2.00 02/17/19 23:55 36.6 02/17/19 23:00 78 16 132/86 (101) 96 Nasal Cannula 2.00 02/17/19 22:00 86 17 137/95 (109) 95 Nasal Cannula 2.00 02/17/19 21:00 90 18 126/79 (95) 96 Nasal Cannula 2.00 02/17/19 20:00 79 23 127/94 (105) 95 Nasal Cannula 2.00 02/17/19 20:00 97 Nasal Cannula 2.00 02/17/19 20:00 36.7 02/17/19 19:00 88 23 117/73 (88) 95 Nasal Cannula 2.00 02/17/19 19:00 86 02/17/19 18:00 86 18 122/61 (81) 95 Nasal Cannula 2.00 02/17/19 17:00 87 21 104/68 (80) 96 Nasal Cannula 2.00 02/17/19 16:00 93 19 97/82 (87) 95 Nasal Cannula 2.00 02/17/19 16:00 36.4 02/17/19 15:50 97 Nasal Cannula 2.00 02/17/19 15:00 88 27 110/57 (74) 93 Nasal Cannula 2.00 02/17/19 14:00 92 21 98/49 (65) 93 Nasal Cannula 2.00 02/17/19 13:00 89 20 108/64 (79) 93 Nasal Cannula 2.00 02/17/19 12:45 100 02/17/19 12:44 38.5 02/17/19 12:15 38.3 02/17/19 12:15 Nasal Cannula 2.00 02/17/19 12:13 38.5 02/17/19 12:00 96 29 178/122 (140) 94 Nasal Cannula 2.00 02/17/19 12:00 38.7 02/17/19 11:23 Room Air 02/17/19 11:00 97 33 160/110 (127) 96 Nasal Cannula 2.00 02/17/19 10:00 98 31 105/87 (93) 96 Nasal Cannula 2.00 02/17/19 09:00 97 14 105/71 (82) 96 Nasal Cannula 2.00 02/17/19 08:00 89 25 133/96 (108) 93 Nasal Cannula 2.00 02/17/19 07:45 37.3 02/17/19 07:45 Room Air 02/17/19 07:00 98 02/17/19 07:00 90 15 103/83 (90) 93 Nasal Cannula 2.00 02/17/19 06:00 89 19 119/91 (100) 94 Nasal Cannula 2.00 02/17/19 05:00 80 12 108/71 (83) 97 Nasal Cannula 2.00 I & O 02/18/19 07:00 Intake Total 4522 ml Output Total 2975 ml Balance 1547 ml Height & Weight Height: '" Weight: 192lbs. oz. 87.809769dp; 36.22 BMI Method:Stated General Appearance: No Apparent Distress, WD/WN, Obese HEENT: Moist Mucous Membranes; No Scleral Icterus (L), No Scleral Icterus (R) Neck: Full Range of Motion, Supple; No Thyromegaly Respiratory: No Accessory Muscle Use, No Respiratory Distress, Decreased Breath Sounds Cardiovascular: Regular Rate, Rhythm, No JVD, No Murmur Capillary Refill: Less Than 3 Seconds Peripheral Pulses: 2+ Dorsalis Pedis (R), 2+ Left Dors-Pedis (L), 2+ Radial Pulses (R), 2+ Radial Pulses (L) Gastrointestinal: non tender, soft, no organomegaly, no pulsatile mass Extremity: No Calf Tenderness, No Pedal Edema Neurologic/Psychiatric: Alert, Oriented x3, Normal Mood/Affect; No Aphasia, No Facial Droop Skin: Normal Color, Warm/Dry Results Lab Laboratory Tests 02/16/19 16:22 02/17/19 03:06 02/18/19 02:56 Assessment/Plan Assessment/Plan Meningitis - probably viral Lumbar puncture - cultures pending Acyclovir LLL PNA - sputum culture ordered - blood urine cultures pending - Rocephain - Azithromycin atelectasis IS Thrombocytopenia -Monitor ADHD JUDITH workup as outpatient Nonsmoker, no illicits TK ZHAO DO Feb 18, 2019 04:43
[2019-02-18] MEDS ORDERED: POTASSIUM PHOSPHATE INJ 15 MM in NS (IVPB) 250 ML IV ONE (05:00)
[2019-02-18] MEDS: LACTATED RINGERS 1,000 ML IV SCH (05:20)
--- NOTE | 2019-02-18 07:54 | Diagnostic Imaging Report ---
Clinical indication: Patient with left lower lobe pneumonia, meningitis. Exam: Portable chest x-ray upright view. Comparisons: Chest x-ray dated 02/17/2019. CT scan of the chest dated 02/17/2019. Findings: There are stable airspace opacities in left midlung field, left lung base, concerning for pneumonia. There is no pleural effusion or pneumothorax. The remainder of the lungs are clear. Pulmonary vasculature and cardiac silhouettes within normal limits. Right IJ central line again seen in stable position. The remainder of this exam shows no significant interval change compared to the prior study of comparison. Impression: Stable left midlung field left lung base infiltrate/pneumonia. Dictated by: Dictated on workstation # [id number]
--- NOTE | 2019-02-18 08:18 | Progress Note - Hospitalist ---
Subjective HPI/CC On Admission Date Seen by Provider: Feb 18, 2019 Time Seen by Provider: 08:13 Pt is a 23yoCM with a PMH of ADHD who presented to the ER due to fever and flu like symptoms. He states his symptoms started on 02/13 in the evening with a headache and progressed through the week. He would get intermittent fevers and chills and had generlized weakness. He also had severe headache. He decided to seek evaluation yesterday at an urgent care and was referred to the ER for evaluation. He states he was so weak he was hardly able to lift his arms to even text and could not walk. He reports today that he is feeling much better today. He has a minor headache but otherwise no complaints. His weakness has significantly improved. He was found to have a LLL pneumonia and a LP was done that was not suggestive of bacterial meningitis. Subjective/Events-last exam Pt reports feeling better. Has not yet been out of bed but feel stronger today. Still coughing. Focused Exam Lactate Level 02/16/19 16:22: Lactic Acid Level 1.44 02/16/19 21:48: Lactic Acid Level 0.91 Objective Exam Vital Signs Vital Signs Date Time Temp Pulse Resp B/P (MAP) Pulse Ox O2 Delivery O2 Flow Rate FiO2 02/18/19 07:00 96 02/18/19 06:00 21 129/85 (100) 94 Nasal Cannula 2.00 02/18/19 04:00 37.8 Capillary Refill : Less Than 3 Seconds General Appearance: No Apparent Distress, WD/WN Respiratory: Lungs Clear, No Accessory Muscle Use Cardiovascular: Regular Rate, Rhythm, No Murmur Gastrointestinal: Normal Bowel Sounds, Non Tender, Soft Neurologic/Psychiatric: Alert, Oriented x3 Results/Procedures Lab Laboratory Tests 02/18/19 02:56 Patient resulted labs reviewed. Imaging: Reviewed Imaging Report Assessment/Plan Assessment and Plan Assess & Plan/Chief Complaint Severe Sepsis- resolved CAP Viral meningitis- less likely PNA noted on CXR Remains on oxygen Continue Rocephin and Azithromycin Concern for possible viral meningitis- acyclovir Cultures NGTD, tick panel negative Transfer to [facility] today Remove Central line Clinical Quality Measures DVT/VTE Risk/Contraindication: Risk Factor Score Per Nursin RFS Level Per Nursing on Admit: 2=Moderate TROY BLAKE MD Feb 18, 2019 08:18
[2019-02-18] MEDS ORDERED: PATIENT MAY USE OWN MEDS, ALL MC SCH (08:30)
[2019-02-18] MEDS ORDERED: LISDEXAMFETAMINE 50 MG PO SCH (09:00)
--- NOTE | 2019-02-18 09:50 | NUR ---
Report given to Marsha GATES and patient transferred to Room 427 via w/c without complications. All personal belongings taken by father to new patient room. Isolation care taken to room. Advised Marsha GATES of order to D/C central line but kphos still infusing. All bedside monitors taken off per order.
--- NOTE | 2019-02-18 09:55 | NUR ---
TRANSFERRED FROM ICU TO ROOM 427 PER W/C. SKIN W/D. RESP. SHALLOW. O2 ON AT 3 L PER MIN. PER N/C. IV IN RIGHT IJ WITH TRIPLE LUMEN, SITE CLEAR. LEFT AC SALINE LOCK IN PLACE. PT. AND MOTHER REQUESTS IJ TO STAY IN PLACE FOR FURTHER TREATMENT NEEDED. UP TO BATHROOM. PT STATED HAD LOOSE BM. MOM AND DAD AT BEDSIDE. HEART RATE REGULAR. LUNGS DIM AMBER. SL. EDEMA IN ANKLES. ABD. SOFT AND NONTENDER. ENCOURAGED IS Q 1H W/A.
[2019-02-18] MEDS: LISDEXAMFETAMINE 50 MG PO SCH (11:35)
[2019-02-18 16:00] LABS: ABG BASE EXCESS 0.5 MMOL/L (-2.5-2.5); ABG OXYGEN SATURATION 98 % (94-100); ABG PCO2 41 MMHG (35-45); ABG PO2 91 MMHG (79-93); ABG TCO2 25.8 MMOL/L (21.0-31.0)
[2019-02-18 16:04] LABS: ALLENS TEST YES-POS; INSPIRED O2 3; PATIENT TEMP 37.5; VENTILATOR NO
[2019-02-18] MEDS ORDERED: cefTRIAXone 1,000 MG IV (ROCEPHIN) VIAL ONE (16:36)
[2019-02-18] MEDS ORDERED: WATER (STERILE) FOR INJECTION 10 ML ONE (16:37)
[2019-02-18] MEDS: cefTRIAXone 1,000 MG/SWFI 10 ML IV PUSH IV SCH ×2 (16:52)
[2019-02-18] MEDS: AZITHROMYCIN 500 MG/NS 250 ML IVPB IV SCH ×2 (20:18)
[2019-02-19] VITALS: BP 129/65
[2019-02-19 04:00] VITALS: BP 126/70
[2019-02-19] MEDS: ACYCLOVIR 800 MG/NS 250 ML IVPB IV SCH ×4 (04:58→13:06)
[2019-02-19] MEDS: ENOXAPARIN 40 MG/0.4 ML (LOVENOX) SYR SC SCH (04:58)
[2019-02-19] MEDS: ACETAMINOPHEN 500 MG TAB (TYLENOL) PO PRN ×2 (05:10→14:48)
[2019-02-19 05:15] LABS: BASOPHILS % (AUTO) 0 % (0-10); EOSINOPHILS # (AUTO) 0.2 10^3/uL (0.0-0.3); EOSINOPHILS % (AUTO) 5 % (0-10); HEMATOCRIT 36 % (40-54); HEMOGLOBIN 11.9 G/DL (13.3-17.7); LYMPHOCYTES # (AUTO) 1.3 X 10^3 (1.0-4.0); LYMPHOCYTES % (AUTO) 32 % (12-44); MEAN CORPUSCULAR HEMOGLOBIN 28 PG (25-34); MEAN CORPUSCULAR HGB CONC 33 G/DL (32-36); MEAN CORPUSCULAR VOLUME 84 FL (80-99); MEAN PLATELET VOLUME 11.6 FL (7.4-10.4); MONOCYTES # (AUTO) 0.5 X 10^3 (0.0-1.0); MONOCYTES % (AUTO) 12 % (0-12); NEUTROPHILS # (AUTO) 2.1 X 10^3 (1.8-7.8); NEUTROPHILS % (AUTO) 51 % (42-75); PLATELET COUNT 132 10^3/uL (130-400); RED CELL DISTRIBUTION WIDTH 12.4 % (10.0-14.5); WHITE BLOOD COUNT 4.1 10^3/uL (4.3-11.0)
--- NOTE | 2019-02-19 05:37 | Diagnostic Imaging Report ---
CLINICAL INDICATION: Patient left lower lobe pneumonia and meningitis. EXAM: Portable chest x-ray upright view. COMPARISONS: Chest x-ray dated 02/18/2019. FINDINGS: There is interval worsening of the left midlung field and left lung base infiltrate. There is development of mild infiltrate in the medial right lung base. There is no definite pleural effusion or pneumothorax. Pulmonary vasculature and cardiac silhouette is within normal limits and stable. Right IJ central line is again seen. The remainder of this exam shows no significant interval change compared to the prior study of comparison. IMPRESSION: 1: There is interval worsening of the left midlung field and left lower lobe infiltrate/pneumonia. 2: There is development of a small medial right lung base infiltrate. Dictated by: Dictated on workstation # [id number]
[2019-02-19 05:38] LABS: BUN/CREATININE RATIO 10; CARBON DIOXIDE 26 MMOL/L (21-32); CHLORIDE 106 MMOL/L (98-107); CREATININE SERUM 0.71 MG/DL (0.60-1.30); POTASSIUM 3.7 MMOL/L (3.6-5.0); SODIUM 140 MMOL/L (135-145)
[2019-02-19 05:39] LABS: GFR ESTIMATED > 60; GLUCOSE 85 MG/DL (70-105); MAGNESIUM 2.2 MG/DL (1.6-2.4); PHOSPHORUS 3.8 MG/DL (2.3-4.7)
--- NOTE | 2019-02-19 07:58 | Pulmonary Progress Note ---
Sepsis Event Evaluation Height, Weight, BMI Height: '" Weight: 192lbs. oz. 87.181854ec; 36.22 BMI Method:Stated Focused Exam Lactate Level 02/16/19 16:22: Lactic Acid Level 1.44 02/16/19 21:48: Lactic Acid Level 0.91 Exam Exam Vital Signs Date Time Temp Pulse Resp B/P (MAP) Pulse Ox O2 Delivery O2 Flow Rate FiO2 02/19/19 07:00 81 02/19/19 06:40 94 Nasal Cannula 3.00 02/19/19 04:00 36.6 65 18 126/70 (88) 96 Nasal Cannula 3.00 02/19/19 01:24 66 02/19/19 01:16 96 Nasal Cannula 3.00 02/19/19 00:00 36.6 75 18 129/65 (86) 95 Nasal Cannula 3.00 02/18/19 22:29 94 Nasal Cannula 3.00 02/18/19 20:20 Nasal Cannula 2.00 02/18/19 19:31 37.5 94 20 137/79 (98) 98 Nasal Cannula 3.00 02/18/19 19:00 92 02/18/19 18:34 96 Nasal Cannula 3.00 02/18/19 16:00 37.5 84 16 104/66 (79) 96 Nasal Cannula 3.00 02/18/19 15:41 94 Nasal Cannula 3.00 02/18/19 15:30 83 02/18/19 11:34 35.9 89 20 117/70 (86) 95 Nasal Cannula 3.00 02/18/19 10:18 37.0 88 22 122/66 (84) 94 Nasal Cannula 2.00 02/18/19 08:00 95 Nasal Cannula 2.00 I & O 02/19/19 07:00 Intake Total 1807 ml Output Total 1700 ml Balance 107 ml Height & Weight Height: '" Weight: 192lbs. oz. 87.049546mn; 36.22 BMI Method:Stated General Appearance: No Apparent Distress, WD/WN, Obese HEENT: Moist Mucous Membranes; No Scleral Icterus (L), No Scleral Icterus (R) Neck: Full Range of Motion, Supple; No Thyromegaly Respiratory: No Accessory Muscle Use, No Respiratory Distress, Decreased Breath Sounds Cardiovascular: Regular Rate, Rhythm, No JVD, No Murmur Capillary Refill: Less Than 3 Seconds Peripheral Pulses: 2+ Dorsalis Pedis (R), 2+ Left Dors-Pedis (L), 2+ Radial Pulses (R), 2+ Radial Pulses (L) Gastrointestinal: non tender, soft, no organomegaly, no pulsatile mass Extremity: No Calf Tenderness, No Pedal Edema Neurologic/Psychiatric: Alert, Oriented x3, Normal Mood/Affect; No Aphasia, No Facial Droop Skin: Normal Color, Warm/Dry Results Lab Laboratory Tests 02/18/19 02:56 02/19/19 05:02 Assessment/Plan Assessment/Plan Meningitis - probably viral Lumbar puncture - cultures pending Acyclovir LLL PNA - sputum culture ordered - blood urine cultures pending - Rocephain - Azithromycin atelectasis IS Thrombocytopenia -Monitor ADHD JUDITH workup as outpatient Nonsmoker, no illicits TK ZHAO DO Feb 19, 2019 07:58
[2019-02-19 08:00] VITALS: BP 122/80
[2019-02-19] MEDS: LISDEXAMFETAMINE 50 MG PO SCH (09:13)
--- NOTE | 2019-02-19 10:59 | NUR ---
patients o2 was decreased from 3 l to 1 l nc; rt will continue to titrate to get patient off his O2 today
[2019-02-19 11:40] VITALS: BP 122/80
--- NOTE | 2019-02-19 12:15 | NUR ---
SPO2 96% ON 1LPM, PT PLACED ON ROOM AIR AT THIS TIME FOR EVALUATION OF NEED OF OXYGEN PER DR BLAKE REQUEST. WILL CHECK SPO2 AFTER SHOWER.
[2019-02-19] MEDS ORDERED: CEPH-507 PO (12:42)
[2019-02-19] MEDS ORDERED: GUAI5SYR PO (12:42)
[2019-02-19] MEDS ORDERED: AZIT250T12 PO (12:42)
--- NOTE | 2019-02-19 12:44 | Discharge Inst-Simple/Standard ---
Discharge Inst-Standard Reconcile Patient Problems Problems Reviewed?: Yes Discharge Medications New, Converted or Re-Newed RX: Transmitted to Pharmacy Patient Instructions/Follow Up Plan of Care/Instructions/FU: Please continue to take your medications as written. Please follow up with [employer] this week and with Dr To in 2 weeks. Activity as Tolerated: Yes (Gradually resume classes as your feel able) Discharge Diet: No Restrictions Return to The Hospital For: Shortness of breath, Chest pain, worsening headache, fever, if you feel you are getting worse. TROY BLAKE MD Feb 19, 2019 12:44
--- NOTE | 2019-02-19 12:45 | NUR ---
PT SPO2 93% ON ROOM AIR AFTER SHOWER, HR 102 RR 16 PT DENIES INCREASED WOB AT THIS TIME.
--- NOTE | 2019-02-19 12:46 | Discharge Summary ---
Diagnosis/Chief Complaint Date of Admission Feb 16, 2019 at 19:21 Date of Discharge Discharge Date: Feb 19, 2019 Admission Diagnosis severe sepsis Primary Care [employer] Student [facility] Discharge Summary Discharge Physical Exam Allergies: Coded Allergies: lentils (Verified Allergy, Unknown, 02/16/19) nut - unspecified (Verified Allergy, Unknown, 02/16/19) Vitals & I&Os Vital Signs Date Time Temp Pulse Resp B/P (MAP) Pulse Ox O2 Delivery O2 Flow Rate FiO2 02/19/19 11:40 36.7 96 20 122/80 (94) 94 Nasal Cannula 1.00 Hospital Course Labs (last 24 hrs) Laboratory Tests 02/18/19 15:55: Blood Gas Puncture Site RT RADIAL, Blood Gas Patient Temperature 37.5, Arterial Blood pH 7.40, Arterial Blood Partial Pressure CO2 41, Arterial Blood Partial Pressure O2 91, Arterial Blood HCO3 25, Arterial Blood Total CO2 25.8, Arterial Blood Oxygen Saturation 98, Arterial Blood Base Excess 0.5, [place] Test YES-POS, Blood Gas Ventilator Setting NO, Blood Gas Inspired Oxygen 3 02/19/19 05:02: White Blood Count 4.1L, Red Blood Count 4.31L, Hemoglobin 11.9L, Hematocrit 36L, Mean Corpuscular Volume 84, Mean Corpuscular Hemoglobin 28, Mean Corpuscular Hemoglobin Concent 33, Red Cell Distribution Width 12.4, Platelet Count 132, Mean Platelet Volume 11.6H, Neutrophils (%) (Auto) 51, Lymphocytes (%) (Auto) 32, Monocytes (%) (Auto) 12, Eosinophils (%) (Auto) 5, Basophils (%) (Auto) 0, Neutrophils # (Auto) 2.1, Lymphocytes # (Auto) 1.3, Monocytes # (Auto) 0.5, Eosinophils # (Auto) 0.2, Basophils # (Auto) 0.0, Sodium Level 140, Potassium Level 3.7, Chloride Level 106, Carbon Dioxide Level 26, Anion Gap 8, Blood Urea Nitrogen 7, Creatinine 0.71, Estimat Glomerular Filtration Rate > 60, BUN/Creatinine Ratio 10, Glucose Level 85, Calcium Level 9.0, Phosphorus Level 3.8, Magnesium Level 2.2 Microbiology 02/16/19 Blood Culture - Preliminary, Resulted No growth 02/16/19 Gram Stain - Final, Resulted 02/16/19 CSF Culture - Preliminary, Resulted No growth 02/16/19 MRSA Screen - Final, Complete MRSA not isolated 02/16/19 Urine Culture - Final, Complete NO GROWTH Patient resulted labs reviewed. Pending Labs Laboratory Tests 02/19/19 05:02: White Blood Count 4.1, Red Blood Count 4.31, Hemoglobin 11.9, Hematocrit 36, Mean Corpuscular Volume 84, Mean Corpuscular Hemoglobin 28, Mean Corpuscular Hemoglobin Concent 33, Red Cell Distribution Width 12.4, Platelet Count 132, Mean Platelet Volume 11.6, Neutrophils (%) (Auto) 51, Lymphocytes (%) (Auto) 32, Monocytes (%) (Auto) 12, Eosinophils (%) (Auto) 5, Basophils (%) (Auto) 0, Neutrophils # (Auto) 2.1, Lymphocytes # (Auto) 1.3, Monocytes # (Auto) 0.5, Eosinophils # (Auto) 0.2, Basophils # (Auto) 0.0, Sodium Level 140, Potassium Level 3.7, Chloride Level 106, Carbon Dioxide Level 26, Anion Gap 8, Blood Urea Nitrogen 7, Creatinine 0.71, Estimat Glomerular Filtration Rate > 60, BUN/Creatinine Ratio 10, Glucose Level 85, Calcium Level 9.0, Phosphorus Level 3.8, Magnesium Level 2.2 Imaging: Reviewed Imaging Report Discharge Home Medications: Active Scripts Active Guaifenesin Dm Syrup (Guaifenesin/Dextromethorphan) 5 Ml Syrup 10 Ml PO TID PRN Azithromycin 250 Mg Tablet 250 Mg PO DAILY Keflex (Cephalexin) 500 Mg Capsule 500 Mg PO BID Reported Vyvanse (Lisdexamfetamine Dimesylate) 50 Mg Capsule 50 Mg PO DAILY Atomoxetine HCl 60 Mg Capsule 60 Mg PO DAILY Instructions to patient/family Please see electronic discharge instructions given to patient. Clinical Quality Measures DVT/VTE Risk/Contraindication: Risk Factor Score Per Nursin RFS Level Per Nursing on Admit: 2=Moderate TROY BLAKE MD Feb 19, 2019 12:46
[2019-02-19] MEDS: IBUPROFEN 600 MG (MOTRIN) TAB PO PRN (13:26)
--- NOTE | 2019-02-19 15:21 | NUR ---
patient has been on RA since 1200 02/19/19 and was checked and was checked at 1507 with O2 sat 94%, he then walked for 6 mins and never dropped below 92%. Patient did not require O2 at rest or on exertion at this time
[2019-02-19 16:20] VITALS: BP 116/74
[2019-02-19] MEDS ORDERED: cefTRIAXone 1,000 MG/SWFI 10 ML IV PUSH IV SCH ×2 (17:00)
== END 2019-02-19 16:22 | disposition home or self-care (01) | DRG 871 ==
LOC: EDUNIT# 16:15 → ER 16:17 → ICU 19:21 → 4TH 02-18 09:57
PROVIDERS: ADMIT Family Medicine; ATTEND Family Medicine
PROC: 009U3ZX Drainage of Spinal Canal, Percutaneous Approach, Diagnostic (ICD-10-PCS; principal; 2019-02-16)
DX: A41.9 Sepsis, unspecified organism (principal); A87.9 Viral meningitis, unspecified; J18.1 Lobar pneumonia, unspecified organism; J98.11 Atelectasis; I95.9 Hypotension, unspecified; D69.6 Thrombocytopenia, unspecified; G47.33 Obstructive sleep apnea (adult) (pediatric); F90.9 Attention-deficit hyperactivity disorder, unspecified type
CPT/HCPCS: 36415; 36600; 51702; 62270; 70450; 71045; 71260; 80048; 80053; 80306; 81000; 82805; 82945; 83605; 83735; 84100; 84157; 85025; 85610; 85730; 86618; 86666; 86668; 86757; 87040; 87070; 87077; 87081; 87088; 87205; 87252; 87804; 89051; 94664; 94760; 94761; 96361; 96374; 96375